=== PATIENT | female | born 1965 | race Caucasian/White ===

== ENCOUNTER 2021-04-25 23:13 | Emergency (ER) | payer OTHER ==
[~2021-04-25] VITALS: Ht 162.6 cm; Wt 87.1 kg
--- NOTE | 2021-04-25 23:40 | NUR ---
BIB SELF C/O WORSTENING RASH TO BOTTOMS OF FEET BILATERALLY. PT REPORTS INCREASED PAIN UPON AMBULATION. PRESENTS WITH A WOUND TO LATERAL ASPECT OF R ANKLE DIAGNOSED WITH MRSA THAT SHE HS TAKEN 3 COURSES OF ABX FOR. STATES THERE WAS IMPROVEMENT, HOWEVER RASH HAS NOW RETURNED. DENIES ANY FEVER, N/V/D OR SOB. PLACED ON MONITOR AND ALL V/S. WAS AT THE BEDSIDE FOR EVAL.
[2021-04-26] MEDS ORDERED: CEPH500T PO (00:10)
[2021-04-26] MEDS ORDERED: SULF1TAB47 PO (00:10)
[2021-04-26] MEDS ORDERED: HYDR-3972 PO (00:10)
--- NOTE | 2021-04-26 00:19 | NUR ---
Patient does not wish to proceed with medical care recommended by Dr. Castellanos. Patient given information related to possible complications, up to and including , which could occur as a result of leaving the hospital at this time. Patient verbalizes understanding of risks involved due to leaving against medical advice. Patient has signed AMA form.
[2021-04-26 00:24] VITALS: BP 117/66
== END 2021-04-26 00:25 | disposition left against medical advice (07) ==
LOC: ER 23:20
DX: L03.115 Cellulitis of right lower limb (principal); I10 Essential (primary) hypertension; E11.9 Type 2 diabetes mellitus without complications; Z60.2 Problems related to living alone